=== PATIENT | female | born 1990 | race Caucasian/White ===

== ENCOUNTER → 2025-03-10 13:37 | Outpatient (CLI) | payer OTHER, SELFPAY ==
--- NOTE | 2025-03-10 13:39 | DI.US.S_ITS ---
MM diagnostic mammo BI, US breast RT limited: 03/10/2025 BI-RADS: 1 CLINICAL: 34-year old female for bilateral diagnostic mammogram and right diagnostic breast ultrasound. Tyrer-Cuzick lifetime risk of 12.0%. No personal or first- degree family history of breast cancer. The patient reports a palpable abnormality (1 month) in the right breast. PRIOR EXAMS: None. This is a baseline examination. MAMMOGRAPHY TECHNIQUE: 2D and 3D (tomosynthesis) digital mammographic views obtained, with additional images as needed for full coverage. Current study was also evaluated with a Computer Aided Detection (CAD) system. ULTRASOUND TECHNIQUE: Real-time kaufman scale and color doppler imaging of the area of clinical interest was performed with image documentation. TARGETED Right Breast Ultrasound: Real-time ultrasound exam was performed focused to area of clinical and/or imaging concern. DENSITY C. The breasts are heterogeneously dense, which may obscure small masses. MAMMOGRAPHY FINDINGS Right (finding-1): Lower Outer Quadrant, Middle depth: A skin marker was placed in the area of concern, and no mammographic abnormalities are identified or to account for concern by the patient of a palpable lump. No suspicious mass, asymmetry, microcalcification, or other abnormality seen. Left: No suspicious mass, asymmetry, microcalcification, or other abnormality seen. ULTRASOUND FINDINGS Right (finding-1): Lower Outer at 8:00, 6 cm from nipple: Underlying the surface marker, there is no sonographic abnormality to account for concern by the patient of a palpable lump. IMPRESSION: * No evidence of malignancy. RECOMMENDATIONS Right * Clinical follow-up is recommended, and further management of palpable abnormalities or other focal signs or symptoms should be based on the results of clinical evaluation. If palpable abnormality or other concerning symptom persists or progresses, further clinical evaluation should be considered. Bilateral * Annual screening mammography beginning at age 40. COMMENTS: Findings and recommendations were conveyed to the patient during today's evaluation. OVERALL ASSESSMENT CATEGORY BI-RADS-1: Negative. [employer] recommends annual screening mammography beginning at age 40 for women with average risk of breast cancer. ELECTRONICALLY SIGNED: Ria Escobar M.D. on 03/10/2025 at 09:20:59 PM PT Interpreting Station ID: [id number]
== END ==
LOC: MAMMO 13:39
PROVIDERS: PCP Physician Assistant
DX: N63.13 Unspecified lump in the right breast, lower outer quadrant (principal); R92.333 Mammographic heterogeneous density, bilateral breasts
CPT/HCPCS: 76642; 77066; G0279